=== PATIENT | male | born 1990 | race Caucasian/White ===

== ENCOUNTER 2022-03-03 22:40 | Emergency (ER) | payer MEDICAID ==
[~2022-03-03] VITALS: Ht 167.6 cm; Wt 78.0 kg
[2022-03-03 22:47] VITALS: BP_SYST 107
--- NOTE | 2022-03-03 22:50 | NUR ---
PATIENT C/O SORE THROAT, LEFT EAR ACHE AND BODY CHILLS X 1 DAY. NO OTHER SYMPTOMS.
--- NOTE | 2022-03-04 01:38 | NUR ---
HANNA RN BIB AMB WITH STOCK MANAGER. C/O SORETHROAT, CHILLS AND RIGHT EARACHE ALL DAY. PT READY FOR ER MD EVAL/ EXAM.
[2022-03-04] MEDS ORDERED: DEXAMETHASONE SOD PHOSPHATE 10 MG/ML VIAL IM ONE (02:00)
[2022-03-04] MEDS ORDERED: ACETAMINOPHEN CHILDREN'S 160 MG/5 ML ORAL.SUSP PO ONE (02:00)
--- NOTE | 2022-03-04 02:08 | NUR ---
FLU, COVID, STREPT SWABS SENT TO LAB
--- NOTE | 2022-03-04 02:26 | NUR ---
MEDS GIVEN PER ER MD ORDERS/ EMAR. ICE PACK TO THROAT FOR PAIN RELIEF, POSTION OF COMFORT. PT RESTING.
[2022-03-04 03:09] LABS: STREPTOCOCCUS A SCREEN (RAPID) NEGATIVE (NEGATIVE)
[2022-03-04] MEDS ORDERED: ZIT250 PO ×2 (04:00→04:44)
[2022-03-04] MEDS ORDERED: AZITHROMYCIN 250 MG TABLET PO ONE (04:00)
[2022-03-04] MEDS ORDERED: AZITHROMYCIN 250 MG TABLET ONE (04:04)
[2022-03-04 04:49] VITALS: BP_SYST 117
--- NOTE | 2022-03-04 04:51 | NUR ---
HANNA RN PT STABLE FOR D/C TO HOME. TO LOBBY AMB WITH ALL PAPERWORK IN HAND. PT VERBALIZES UNDERSTANDING. WILL F/U WITH PMD NEXT WEEK."FEELS BETTER".
== END 2022-03-04 04:49 | disposition home or self-care (01) ==
LOC: SED 22:40
DX: J03.90 Acute tonsillitis, unspecified (principal); R05.9 Cough, unspecified; J45.909 Unspecified asthma, uncomplicated; Z79.899 Other long term (current) drug therapy; Z20.822 Contact with and (suspected) exposure to COVID-19
CPT/HCPCS: 99283; 87426; 86403; 36415; 87081; 87804 ×2; 96372; J1100; Q0144